=== PATIENT | male | born 1980 | race Caucasian/White ===

== ENCOUNTER 2017-05-13 14:00 | Emergency (ER) | payer MEDICAID, SELFPAY ==
[2017-05-13 14:30] VITALS: BP 128/81; PULSE 94; RESP 18; TEMP 36.6; O2SAT 98; BMI 23.6
[2017-05-13 15:34] VITALS: BP 128/81; PULSE 94; RESP 18; TEMP 36.6; O2SAT 98
--- NOTE | 2017-05-13 15:40 | HMH.EDUTC ---
[facility] [place] Disposition Clinical Impression: Left ear impacted cerumen Left otitis media Qualifiers: Otitis media type: suppurative Chronicity: acute Recurrence: not specified as recurrent Spontaneous tympanic membrane rupture: without spontaneous rupture Qualified Code(s): H66.002 - Acute suppurative otitis media without spontaneous rupture of ear drum, left ear Disposition: Home, Self-Care Condition on Discharge: Good Instructions: DI for Cerumen Impaction, DI for Otitis Media (Middle Ear Infection)-Child Additional Instructions: * cerumen removed from left completely * Cerumen partially removed on right. Debrox over the counter helps to make wax softer and easier to remove. Use x4 days then return if desire further irrigation. * Start antibiotic CECILIO and be sure to take as ordered for the FULL length of time although you should start to feel better in 24-48 hours. * Monitor Temp. FU if fever develops * Encourage fluids, water, Gatorade, PowerAde, pedialyte if infant/toddler/child * warm compress often helps when placed over ear * sleep elevated * FOLLOW UP with primary care Immediately for new or worsening symptoms, no noticeable improvement in 48-72 hours AND in 10-14 days to ensure ears are back to baseline. Prescriptions: Amoxicillin [Amoxicillin 500mg Cap] 500 mg PO TID #30 cap Time of Disposition: 15:48 Medical Decision Making - Junior Inquiry Pt receiving controlled substance: No Vital Signs: 05/13/17 14:30 05/13/17 15:34 Temperature 98 F 98 F Temperature Source Temporal Artery Scan Temporal Artery Scan Pulse Rate 94 H Pulse Rate [Brachial] 94 H Respiratory Rate 18 18 Blood Pressure 128/81 Blood Pressure [Right Arm] 128/81 Blood Pressure Mean [Right Arm] 96 Blood Pressure Position [Right Arm] Sitting 02 Sat by Pulse Oximetry 98 Oxygen Delivery Method Room Air [facility] [place] HPI - General Stated complaint: ear pain drainage Time Seen by Provider: 05/13/17 15:00 Mode of Arrival: Ambulatory Source of Information: Patient Limitations: No Limitations Description of Symptoms (Recalled from Triage Doc. by RN): LEFT EAR PAIN THAT STARTED LAST NIGHT AND SINUS DRAINAGE HEENT Symptoms (Recalled from RN notes): Yes Resp Symptoms (Recalled from RN notes): No Skin Symptoms (Recalled from RN notes): No MS Symptoms (Recalled from RN notes): No Functional Status (Recalled from RN notes): NA - History of Present Illness Provider Complaint: c/o left hear clogged and pain. Started w/ feeling clogged last night around [place] but when tried to go to sleep, pain. Hearing less. No recent illnesses. Hx of cerumen impactions. Hasn't taken or tried anything for symptoms. - Related Data Previous Rx's Medication Instructions Recorded Amoxicillin [Amoxicillin 500mg 500 mg PO TID #30 cap 05/13/17 Cap] Allergies Allergy/AdvReac Type Severity Reaction Status Date / Time INGREDIENT: NO KNOWN - NO Allergy Unknown Uncoded 02/05/17 14:43 KNOWN DRUG ALLERGY - Worker's Comp Is this a Worker's Comp case?: No [facility] History I have reviewed the patient's past medical history: Yes (denies PMhx) Medical History: Denies:: Diabetes Mellitus Type 1, Diabetes Mellitus Type 2, Hypertension Other Surgeries: Yes: Hernia Repair, Other (gaglion cyst, pilonidal cyst) - Social History Smoking Status: Current every day smoker Alcohol Intake: never - Psychiatric History Expresses thoughts of harming self/others: None Suicide Plan Description: No Plan ROS Obtained: Yes Systems reviewed as appropriate & no additional complaints - Constitutional Constitutional: Reports as per HPI, Denies body ache, Denies chills, Denies fatigue, Denies fever(s) - Eyes Eyes: Denies eye discharge, Denies itchy eyes - ENT Ears, Nose, Mouth, and Throat: Reports as per HPI, Denies ear discharge, Denies nasal congestion, Denies nasal discharge, Denies sore throat, Denies other (sneezing) - Cardiovascular Cardiovascular: Denies
--- NOTE | 2017-05-13 15:43 | ED_ITS ---
[facility] [place] Clinical Impression: Left ear impacted cerumen Left otitis media Qualifiers: Otitis media type: suppurative Chronicity: acute Recurrence: not specified as recurrent Spontaneous tympanic membrane rupture: without spontaneous rupture Qualified Code(s): H66.002 - Acute suppurative otitis media without spontaneous rupture of ear drum, left ear Disposition: Home, Self-Care Condition on Discharge: Good Instructions: DI for Cerumen Impaction, DI for Otitis Media (Middle Ear Infection)-Child Additional Instructions: * cerumen removed from left completely * Cerumen partially removed on right. Debrox over the counter helps to make wax softer and easier to remove. Use x4 days then return if desire further irrigation. * Start antibiotic CECILIO and be sure to take as ordered for the FULL length of time although you should start to feel better in 24-48 hours. * Monitor Temp. FU if fever develops * Encourage fluids, water, Gatorade, PowerAde, pedialyte if infant/toddler/ child * warm compress often helps when placed over ear * sleep elevated * FOLLOW UP with primary care Immediately for new or worsening symptoms, no noticeable improvement in 48-72 hours AND in 10-14 days to ensure ears are back to baseline. Prescriptions: Amoxicillin [Amoxicillin 500mg Cap] 500 mg PO TID #30 cap Time of Disposition: 15:48 Medical Decision Making - Junior Inquiry Pt receiving controlled substance: No Vital Signs: 05/13/17 14:30 05/13/17 15:34 Temperature 98 F 98 F Temperature Source Temporal Artery Scan Temporal Artery Scan Pulse Rate 94 H Pulse Rate [Brachial] 94 H Respiratory Rate 18 18 Blood Pressure 128/81 Blood Pressure [Right Arm] 128/81 Blood Pressure Mean [Right Arm] 96 Blood Pressure Position [Right Arm] Sitting 02 Sat by Pulse Oximetry 98 Oxygen Delivery Method Room Air [facility] [place] HPI - General Stated complaint: ear pain drainage Time Seen by Provider: 05/13/17 15:00 Mode of Arrival: Ambulatory Source of Information: Patient Limitations: No Limitations Description of Symptoms (Recalled from Triage Doc. by RN): LEFT EAR PAIN THAT STARTED LAST NIGHT AND SINUS DRAINAGE HEENT Symptoms (Recalled from RN notes): Yes Resp Symptoms (Recalled from RN notes): No Skin Symptoms (Recalled from RN notes): No MS Symptoms (Recalled from RN notes): No Functional Status (Recalled from RN notes): NA - History of Present Illness Provider Complaint: c/o left hear clogged and pain. Started w/ feeling clogged last night around [place] but when tried to go to sleep, pain. Hearing less. No recent illnesses. Hx of cerumen impactions. Hasn't taken or tried anything for symptoms. - Related Data Previous Rx's Medication Instructions Recorded Amoxicillin [Amoxicillin 500mg 500 mg PO TID #30 cap 05/13/17 Cap] Allergies Allergy/AdvReac Type Severity Reaction Status Date / Time INGREDIENT: NO KNOWN - NO Allergy Unknown Uncoded 02/05/17 14:43 KNOWN DRUG ALLERGY - Worker's Comp Is this a Worker's Comp case?: No [facility] History I have reviewed the patient's past medical history: Yes (denies PMhx) Medical History: Denies:: Diabetes Mellitus Type 1, Diabetes Mellitus Type 2, Hypertension Other Surgeries: Yes: Hernia Repair, Other (gaglion cyst, pilonidal cyst) - Social History Smoking Status: Current every day smoker Alc
== END 2017-05-13 15:50 | disposition home or self-care (01) ==
PROVIDERS: Emergency Provider Nurse Practitioner Family
DX: H66.002 Acute suppurative otitis media without spontaneous rupture of ear drum, left ear (principal); H66.22 Chronic atticoantral suppurative otitis media, left ear
CPT/HCPCS: 99201

== ENCOUNTER 2019-10-07 14:37 | Emergency (ER) | payer OTHER, SELFPAY ==
[2019-10-07 15:11] VITALS: BP 141/91; PULSE 58; RESP 14; TEMP 36.7; O2SAT 100; BMI 21.4
--- NOTE | 2019-10-07 15:22 | HMH.EDUTC ---
[facility] Clinical Impression: Right conjunctivitis Qualifiers: Conjunctivitis type: acute Acute conjunctivitis type: unspecified Qualified Code(s): H10.31 - Unspecified acute conjunctivitis, right eye Disposition: Home, Self-Care Condition on Discharge: Good Instructions: Conjunctivitis Additional Instructions: Use the eye drops as directed. Strict hand washing in the house hold, because conjunctivitis is very contagious. Follow up with your regular doctor. GO TO THE ER FOR ANY WORSENING SYMPTOMS OR CONCERNS Prescriptions: Sulfacetamide Sodium [Bleph-10] 1 drp EYE-BOTH Q3H 7 Days #1 bottle Transmission Status: Received by [facility] #[id number] Referrals: Wilbert Patiño MD [Primary Care Provider] - Forms: Work/School Release Time of Disposition: 15:29 Medical Decision Making - Medical Records Medical records reviewed: No: I reviewed the patient's medical records. - Junior Inquiry Pt receiving controlled substance: No Vital Signs: 10/07/19 15:11 10/07/19 15:33 Temperature 98.1 F 98.1 F Temperature Source Oral Pulse Rate 58 L Pulse Rate [Right Brachial] 58 L Respiratory Rate 14 14 Blood Pressure 141/91 H Blood Pressure [Right Arm] 141/91 H Blood Pressure Mean [Right Arm] 107 Blood Pressure Source [Right Arm] Automatic Cuff Blood Pressure Position [Right Arm] Sitting 02 Sat by Pulse Oximetry 100 Oxygen Delivery Method Room Air [facility] [place] - General Stated complaint: Possible pink eye in r eye Time Seen by Provider: 10/07/19 15:22 Mode of Arrival: Ambulatory Source of Information: Patient Limitations: No Limitations Description of Symptoms (Recalled from Triage Doc. by RN): PATIENT C/O POSSIBLE PINK EYE TO RIGHT EYE HEENT Symptoms (Recalled from RN notes): Yes Resp Symptoms (Recalled from RN notes): No Skin Symptoms (Recalled from RN notes): No MS Symptoms (Recalled from RN notes): No Functional Status (Recalled from RN notes): WNL - History of Present Illness Provider Complaint: He states that for the past 2 days he has had right eye irritation and redness. He denies any injury or foreign body. He thinks that he has pink eye. - Related Data Previous Rx's Medication Instructions Recorded Sulfacetamide Sodium [Bleph-10] 1 drp EYE-BOTH Q3H 7 Days #1 bottle 10/07/19 Allergies Allergy/AdvReac Type Severity Reaction Status Date / Time No Known Allergies Allergy Verified 02/19/18 19:12 - Worker's Comp Is this a Worker's Comp case?: No [facility] History - Hepatitis A Screen Drug use history?: No High risk sexual behaviors?: No History of sexually transmitted infection?: No Currently employed?: No Childcare worker?: No Do you have indoor plumbing?: Yes Do you have electricity?: Yes Attestation statement:: This patient has been screened for Hepatitis A risk factors. I have reviewed the patient's past medical history: Yes Medical History: Denies:: Cancer, Diabetes Mellitus Type 1, Diabetes Mellitus Type 2, Hypertension, MRSA Other Surgeries: Yes: No Previous Surgery, Hernia Repair, Other Amputation: No Fractures: No - Social History Smoking Status: Current every day smoker Tobacco Type: cigarettes # Packs/Day (cigarettes): 1 Alcohol Intake: never Occupational Status: other Housing: house Household Members: family Family Hx:: No significant family history ROS Obtained: Yes All systems reviewed & no additional complaints - Constitutional Constitutional: Denies chills, Denies fever(s) - Eyes Eyes: Reports as per HPI - ENT Ears, Nose, Mouth, and Throat: Denies dizziness, Denies otalgia, Denies sore throat - Cardiovascular Cardiovascular: Denies chest pain - Respiratory Respiratory: No chest congestion, No cough Physical Exam - General General appearance: alert, in no apparent distress - Head Head exam: atraumatic, normocephalic, normal inspection - Eye Eye exam: Present: PERRL, EOMI, conjunctival injection, dischar
[2019-10-07 15:33] VITALS: BP 141/91; PULSE 58; RESP 14; TEMP 36.7; O2SAT 100
== END 2019-10-07 15:37 | disposition home or self-care (01) ==
PROVIDERS: Emergency Provider Nurse Practitioner Family; PCP Internal Medicine Adolescent Medicine
DX: H10.31 Unspecified acute conjunctivitis, right eye (principal); F17.210 Nicotine dependence, cigarettes, uncomplicated
CPT/HCPCS: 99201

== ENCOUNTER 2019-12-23 12:57 | Emergency (ER) | payer OTHER, SELFPAY ==
[2019-12-23 13:08] VITALS: BP 116/89; PULSE 83; RESP 18; TEMP 36.7; O2SAT 96; BMI 21.4
--- NOTE | 2019-12-23 13:15 | HMH.EDUTC ---
[facility] [place] Clinical Impression: Right conjunctivitis Qualifiers: Conjunctivitis type: unspecified Qualified Code(s): H10.9 - Unspecified conjunctivitis Disposition: Home, Self-Care Condition on Discharge: Good Instructions: How to Instill Eye Drops, Conjunctivitis, DI for Conjunctivitis Additional Instructions: Clean hands before and after applying drops Follow up with Dr Ríos or eye doctor if no improvement or any worsening of symptoms Return if needed Straight to ER if any life threatening symptoms Prescriptions: Erythromycin Base [Erythromycin 3.5gm opth oinment] 1 applicatio OP Q6H 7 Days #1 tube Transmission Status: Received by [facility] #[id number] Referrals: Wilbert Patiño MD [Primary Care Provider] - As needed Dr Ríos [Other] - As needed Time of Disposition: 13:34 Medical Decision Making - Junior Inquiry Pt receiving controlled substance: No Junior was queried for this patient: No Vital Signs: 12/23/19 13:08 12/23/19 13:38 Temperature 98.0 F 98.0 F Temperature Source Oral Oral Pulse Rate 83 Pulse Rate [Radial] 83 Respiratory Rate 18 18 Blood Pressure 116/80 Blood Pressure [Right Arm] 116/89 Blood Pressure Mean [Right Arm] 98 Blood Pressure Source Automatic Cuff Blood Pressure Source [Right Arm] Automatic Cuff Blood Pressure Position Sitting Blood Pressure Position [Right Arm] Sitting 02 Sat by Pulse Oximetry 96 Oxygen Delivery Method Room Air Room Air Medical Decision Narrative: Discussed eye exam and patient declined states that he has had pink eye before and felt like this States that he use old pair of contacts and irritation and redness started after that States that if symptoms continue he will follow up with Eye Doctor Denies injury of FB [facility] [place]PI - General Stated complaint: eye swollen and draining Time Seen by Provider: 12/23/19 13:16 Mode of Arrival: Ambulatory Source of Information: Patient Limitations: No Limitations Description of Symptoms (Recalled from Triage Doc. by RN): pink eye HEENT Symptoms (Recalled from RN notes): Yes Resp Symptoms (Recalled from RN notes): No Skin Symptoms (Recalled from RN notes): No MS Symptoms (Recalled from RN notes): No Functional Status (Recalled from RN notes): wnl - History of Present Illness Provider Complaint: Patient state that he thinks he has pink eye again States that he wore a pair of old contacts a couple days ago and noticed that he was starting to have drainage and itching/irritation in his right eye with redness and drainage States that it feels like it did before when he had pink eye States that this morning it was red and matted together so this evening it was still red and having drainage so he came in to get it checked denies injury of FB - Related Data Previous Rx's Medication Instructions Recorded Sulfacetamide Sodium [Bleph-10] 1 drp EYE-BOTH Q3H 7 Days #1 bottle 10/07/19 Erythromycin Base [Erythromycin 1 applicatio OP Q6H 7 Days #1 tube 12/23/19 3.5gm opth oinment] Allergies Allergy/AdvReac Type Severity Reaction Status Date / Time No Known Allergies Allergy Verified 02/19/18 19:12 - Worker's Comp Is this a Worker's Comp case?: No [facility] History - Hepatitis A Screen Drug use history?: No High risk sexual behaviors?: No History of sexually transmitted infection?: No Currently employed?: No Childcare worker?: No Do you have indoor plumbing?: Yes Do you have electricity?: Yes Attestation statement:: This patient has been screened for Hepatitis A risk factors. I have reviewed the patient's past medical history: Yes Medical History: Denies:: Cancer, Diabetes Mellitus Type 1, Diabetes Mellitus Type 2, Hypertension, MRSA Other Surgeries: Yes: No Previous Surgery, Hernia Repair, Other Amputation: No Fractures: No - Social History Smoking Status: Current every day smoker Tobacco Type: cigarettes # Packs/Day (cigarettes): 1 Alcohol Intake: never Occupational Status: empl
[2019-12-23 13:38] VITALS: BP 116/80; PULSE 83; RESP 18; TEMP 36.7; O2SAT 96
== END 2019-12-23 13:40 | disposition home or self-care (01) ==
PROVIDERS: Emergency Provider Nurse Practitioner; PCP Internal Medicine Adolescent Medicine
DX: H10.33 Unspecified acute conjunctivitis, bilateral (principal)
CPT/HCPCS: 99201

== ENCOUNTER 2020-05-25 15:00 | Emergency (ER) | payer OTHER, SELFPAY ==
[2020-05-25 15:00] VITALS: BP 134/91; PULSE 76; RESP 18; TEMP 37.1; O2SAT 98; BMI 24.9
--- NOTE | 2020-05-25 15:16 | HMH.EDUTC ---
[facility] [place]: Dental [place] Disposition: Home, Self-Care Condition on Discharge: Good Instructions: Tooth Abscess, DI for Dental Pain Additional Instructions: Take medication as prescribed *Use Dental balls as advised and instructed in [facility] to help with dental pain Follow up with Dentist as scheduled Follow up with your Family Doctor if needed Straight to ER if any life threatening symptoms Prescriptions: Ibuprofen [Ibuprofen 600mg Tablet] 600 mg PO Q6HP PRN #20 tab PRN Reason: Moderate Pain Transmission Status: Pending to [facility] # Amoxicillin/Potassium Clav [Augmentin 875-125 Tablet] 1 tab PO Q12H 7 Days #14 tab Transmission Status: Pending to [facility] # Referrals: Wilbert Patiño MD [Primary Care Provider] - As needed Time of Disposition: 15:22 Medical Decision Making - Junior Inquiry Pt receiving controlled substance: No Junior was queried for this patient: No Vital Signs: 05/25/20 15:00 Temperature 98.8 F Temperature Source Oral Pulse Rate [Right Brachial] 76 Respiratory Rate 18 Blood Pressure [Right Arm] 134/91 H Blood Pressure Mean [Right Arm] 105 Blood Pressure Source [Right Arm] Automatic Cuff Blood Pressure Position [Right Arm] Sitting 02 Sat by Pulse Oximetry 98 Oxygen Delivery Method Room Air [facility] [place] - General Stated complaint: dental pain Time Seen by Provider: 05/25/20 15:16 Mode of Arrival: Ambulatory Source of Information: Patient Limitations: No Limitations Description of Symptoms (Recalled from Triage Doc. by RN): PATIENT C/O MOUTH/DENTAL PAIN HEENT Symptoms (Recalled from RN notes): Yes Resp Symptoms (Recalled from RN notes): No Skin Symptoms (Recalled from RN notes): No MS Symptoms (Recalled from RN notes): No Functional Status (Recalled from RN notes): WNL - History of Present Illness Provider Complaint: Patient state that he has been having pain and swelling on and off on his left jaw area State that he has multiple broken and cracked teeth and has been trying to get into a dentist States that for the last couple of days he has started having pain again and noticed today his gum looked red and swollen and worried that he may have a dental abscess and has appointment with dentist next week so he came in - Related Data Previous Rx's Medication Instructions Recorded Amoxicillin/Potassium Clav 1 tab PO Q12H 7 Days #14 tab 05/25/20 [Augmentin 875-125 Tablet] Ibuprofen [Ibuprofen 600mg 600 mg PO Q6HP PRN #20 tab 05/25/20 Tablet] Allergies Allergy/AdvReac Type Severity Reaction Status Date / Time No Known Allergies Allergy Verified 02/19/18 19:12 - Worker's Comp Is this a Worker's Comp case?: No [facility] History - Hepatitis A Screen Drug use history?: No High risk sexual behaviors?: No History of sexually transmitted infection?: No Currently employed?: No Childcare worker?: No Do you have indoor plumbing?: Yes Do you have electricity?: Yes Attestation statement:: This patient has been screened for Hepatitis A risk factors. I have reviewed the patient's past medical history: Yes Medical History: Denies:: Cancer, Diabetes Mellitus Type 1, Diabetes Mellitus Type 2, Hypertension, MRSA Other Surgeries: Yes: No Previous Surgery, Hernia Repair, Other Amputation: No Fractures: No - Social History Smoking Status: Current every day smoker Tobacco Type: cigarettes # Packs/Day (cigarettes): 1 Alcohol Intake: never Occupational Status: other Housing: house Household Members: family Family Hx:: No significant family history ROS Obtained: Yes All systems reviewed & no additional complaints, Yes Systems reviewed as appropriate & no additional complaints - Constitutional Constitutional: Reports system reviewed and no additional complaints, except as docu - ENT Ears, Nose, Mouth, and Throat: Reports dental pain Physical Exam - General General appearance: alert, in no apparen
[2020-05-25 15:30] VITALS: BP 134/91; PULSE 76; RESP 18; TEMP 37.1; O2SAT 98
== END 2020-05-25 15:34 | disposition home or self-care (01) ==
PROVIDERS: Emergency Provider Nurse Practitioner; PCP Internal Medicine Adolescent Medicine
DX: K04.7 Periapical abscess without sinus (principal); K02.9 Dental caries, unspecified; F17.210 Nicotine dependence, cigarettes, uncomplicated
CPT/HCPCS: 99202; G0463

== ENCOUNTER 2020-06-20 09:03 | Emergency (ER) | payer OTHER, SELFPAY ==
[2020-06-20 09:09] VITALS: BP 153/100; PULSE 82; RESP 16; TEMP 36.8; O2SAT 99; BMI 25.9
--- NOTE | 2020-06-20 09:35 | HMH.EDUTC ---
[facility] [place] Clinical Impression: Left otitis media Qualifiers: Otitis media type: suppurative Chronicity: acute Recurrence: non-recurrent Spontaneous tympanic membrane rupture: without spontaneous rupture Qualified Code(s): H66.002 - Acute suppurative otitis media without spontaneous rupture of ear drum, left ear Disposition: Home, Self-Care Condition on Discharge: Good Instructions: Middle Ear Infection Additional Instructions: Drink plenty of fluids. Take tylenol or ibuprofen for pain or fever. Take the medications as directed. Follow up with your regular doctor. GO TO THE ER FOR ANY WORSENING SYMPTOMS Prescriptions: Amoxicillin [Amoxicillin 500mg Tab] 500 mg PO TID 10 Days #30 tab Transmission Status: Received by [facility] # predniSONE [Deltasone 10mg tablet] 10 mg PO BID 3 Days #6 tab Transmission Status: Received by [facility] # Referrals: Wilbert Patiño MD [Primary Care Provider] - Time of Disposition: 09:38 Medical Decision Making - Medical Records Medical records reviewed: No: I reviewed the patient's medical records. - Junior Inquiry Pt receiving controlled substance: No Vital Signs: 06/20/20 09:09 06/20/20 09:45 Temperature 98.3 F 98 F Temperature Source Oral Pulse Rate 81 Pulse Rate [Right] 82 Respiratory Rate 16 14 Blood Pressure 142/96 H Blood Pressure [Right Arm] 153/100 H Blood Pressure Mean [Right Arm] 117 Blood Pressure Source [Right Arm] Automatic Cuff Blood Pressure Position [Right Arm] Sitting 02 Sat by Pulse Oximetry 99 Oxygen Delivery Method Room Air [facility] [place] HPI - General Stated complaint: ear pain Time Seen by Provider: 06/20/20 09:35 Mode of Arrival: Ambulatory Source of Information: Patient Limitations: No Limitations Description of Symptoms (Recalled from Triage Doc. by RN): L ear pain/ pressure x1 week HEENT Symptoms (Recalled from RN notes): Yes (L ear pain) Resp Symptoms (Recalled from RN notes): No Skin Symptoms (Recalled from RN notes): No MS Symptoms (Recalled from RN notes): No Functional Status (Recalled from RN notes): na - History of Present Illness Provider Complaint: He states that he has had left ear pain for the past 3 days. He has a history of getting ear infections frequently. - Related Data Previous Rx's Medication Instructions Recorded Amoxicillin/Potassium Clav 1 tab PO Q12H 7 Days #14 tab 05/25/20 [Augmentin 875-125 Tablet] Ibuprofen [Ibuprofen 600mg 600 mg PO Q6HP PRN #20 tab 05/25/20 Tablet] Amoxicillin [Amoxicillin 500mg Tab] 500 mg PO TID 10 Days #30 tab 06/20/20 predniSONE [Deltasone 10mg tablet] 10 mg PO BID 3 Days #6 tab 06/20/20 Allergies Allergy/AdvReac Type Severity Reaction Status Date / Time No Known Allergies Allergy Verified 06/20/20 09:18 - Worker's Comp Is this a Worker's Comp case?: No [facility] History - Hepatitis A Screen Drug use history?: No High risk sexual behaviors?: No History of sexually transmitted infection?: No Currently employed?: No Childcare worker?: No Do you have indoor plumbing?: Yes Do you have electricity?: Yes Attestation statement:: This patient has been screened for Hepatitis A risk factors. I have reviewed the patient's past medical history: Yes Medical History: Denies:: Cancer, Diabetes Mellitus Type 1, Diabetes Mellitus Type 2, Hypertension, MRSA Other Surgeries: Yes: No Previous Surgery, Hernia Repair, Other Amputation: No Fractures: No - Social History Smoking Status: Current every day smoker Tobacco Type: cigarettes # Packs/Day (cigarettes): 1 Alcohol Intake: never Occupational Status: other Housing: house Household Members: family Family Hx:: No significant family history ROS Obtained: Yes All systems reviewed & no additional complaints - Constitutional Constitutional: Denies chills, Denies fever(s) - Eyes Eyes: Denies blurry vision, Denies change in vision, Denies eye discharge, Denies
[2020-06-20 09:45] VITALS: BP 142/96; PULSE 81; RESP 14; TEMP 36.6
== END 2020-06-20 09:50 | disposition home or self-care (01) ==
PROVIDERS: Emergency Provider Nurse Practitioner Family; PCP Internal Medicine Adolescent Medicine
DX: H66.002 Acute suppurative otitis media without spontaneous rupture of ear drum, left ear (principal); F17.210 Nicotine dependence, cigarettes, uncomplicated
CPT/HCPCS: 99202; G0463

== ENCOUNTER 2020-09-05 19:11 | Emergency (ER) | payer OTHER, SELFPAY ==
[2020-09-05 19:15] VITALS: BP 111/78; PULSE 77; RESP 20; TEMP 36.8; O2SAT 98; BMI 22.1
--- NOTE | 2020-09-05 19:41 | HMH.EDUTC ---
[facility] [place] Impression: Left otitis media Qualifiers: Otitis media type: unspecified Qualified Code(s): H66.92 - Otitis media, unspecified, left ear Disposition: Home, Self-Care Condition on Discharge: Good Instructions: Middle Ear Infection, Amoxicillin Additional Instructions: Take medication as prescribed Over the counter Debrox may help with wax removal in ear Over the counter Motrin and/or Tylenol as directed on package for fever and pain Follow up with your Family Doctor if no improvement or any worsening of symptoms Prescriptions: Amoxicillin [Amoxicillin 875MG Tab] 875 mg PO Q12H #20 tab Transmission Status: Pending to [facility] #[id number] Referrals: Wilbert Patiño MD [Primary Care Provider] - As needed Time of Disposition: 19:43 Medical Decision Making - Junior Inquiry Pt receiving controlled substance: No Junior was queried for this patient: No Vital Signs: 09/05/20 19:15 09/05/20 19:42 Temperature 98.2 F 98.2 F Temperature Source Oral Pulse Rate 77 Pulse Rate [Left Brachial] 77 Respiratory Rate 20 20 Blood Pressure 111/78 Blood Pressure [Left Arm] 111/78 Blood Pressure Mean [Left Arm] 89 Blood Pressure Source [Left Arm] Automatic Cuff Blood Pressure Position [Left Arm] Sitting 02 Sat by Pulse Oximetry 98 Oxygen Delivery Method [place] [facility] [place] - General Stated complaint: left earache Time Seen by Provider: 09/05/20 19:41 Mode of Arrival: Ambulatory Source of Information: Patient Limitations: No Limitations Description of Symptoms (Recalled from Triage Doc. by RN): PATIENT C/O LEFT EAR PAIN X 2 DAYS HEENT Symptoms (Recalled from RN notes): No Resp Symptoms (Recalled from RN notes): No Skin Symptoms (Recalled from RN notes): No MS Symptoms (Recalled from RN notes): Yes Functional Status (Recalled from RN notes): WNL - History of Present Illness Provider Complaint: Patient states that he gets ear infections often States that he was having pressure like feeling in his left ear about a week ago and has been having pain in left ear for the last couple of days States that feels like he has ear infection again - Related Data Previous Rx's Medication Instructions Recorded Amoxicillin/Potassium Clav 1 tab PO Q12H 7 Days #14 tab 05/25/20 [Augmentin 875-125 Tablet] Ibuprofen [Ibuprofen 600mg 600 mg PO Q6HP PRN #20 tab 05/25/20 Tablet] Amoxicillin [Amoxicillin 500mg Tab] 500 mg PO TID 10 Days #30 tab 06/20/20 predniSONE [Deltasone 10mg tablet] 10 mg PO BID 3 Days #6 tab 06/20/20 Amoxicillin [Amoxicillin 875MG 875 mg PO Q12H #20 tab 09/05/20 Tab] Allergies Allergy/AdvReac Type Severity Reaction Status Date / Time No Known Allergies Allergy Verified 06/20/20 09:18 - Worker's Comp Is this a Worker's Comp case?: No [facility] History - Hepatitis A Screen Drug use history?: No High risk sexual behaviors?: No History of sexually transmitted infection?: No Currently employed?: No Childcare worker?: No Do you have indoor plumbing?: Yes Do you have electricity?: Yes Attestation statement:: This patient has been screened for Hepatitis A risk factors. I have reviewed the patient's past medical history: Yes Medical History: Denies:: Cancer, Diabetes Mellitus Type 1, Diabetes Mellitus Type 2, Hypertension, MRSA Other Surgeries: Yes: No Previous Surgery, Hernia Repair, Other Amputation: No Fractures: No - Social History Smoking Status: Current every day smoker Tobacco Type: cigarettes # Packs/Day (cigarettes): 1 Alcohol Intake: never Occupational Status: other Housing: house Household Members: family Family Hx:: No significant family history ROS Obtained: Yes All systems reviewed & no additional complaints, Yes Systems reviewed as appropriate & no additional complaints - Constitutional Constitutional: Reports system reviewed and no additional complaints, except as docu - ENT Ears, Nose, Mouth, and Throat: Reports system r
[2020-09-05 19:42] VITALS: BP 111/78; PULSE 77; RESP 20; TEMP 36.8; O2SAT 98
== END 2020-09-05 19:46 | disposition home or self-care (01) ==
PROVIDERS: Emergency Provider Nurse Practitioner; PCP Internal Medicine Adolescent Medicine
DX: H66.92 Otitis media, unspecified, left ear (principal); F17.210 Nicotine dependence, cigarettes, uncomplicated
CPT/HCPCS: 99202; G0463

== ENCOUNTER 2020-09-09 14:03 | Emergency (ER) | payer OTHER, SELFPAY ==
[2020-09-09 15:05] VITALS: BP 127/91; PULSE 82; RESP 16; TEMP 37; O2SAT 98; BMI 21.8
--- NOTE | 2020-09-09 15:32 | HMH.EDUTC ---
[facility] [place] Clinical Impression: Otitis externa Qualifiers: Otitis externa type: unspecified type Chronicity: unspecified Laterality: left Qualified Code(s): H60.92 - Unspecified otitis externa, left ear Disposition: Home, Self-Care Condition on Discharge: Good Instructions: Otitis Externa, DI for Otitis Externa Additional Instructions: Continue taking oral antibiotics Start Antibiotic drops as prescribed Follow up with your Family Doctor if needed Follow up with Dr Campos or Dr Murdock in ENT office for further evaluation and treatment if you continue to have ear problems Return if needed Prescriptions: Neomyc/Colist/Hydrocort/Thonzn [Cortisporin-Tc Ear Suspension] 4 drops EAR-LEFT TID 7 Days #1 bottle Transmission Status: Pending to [email or web address] #[id number] Referrals: Wilbert Patiño MD [Primary Care Provider] - As needed Cabrera Campos MD [Staff Physician] - Amber Murdock MD [Consulting Physician] - Time of Disposition: 15:40 Medical Decision Making - Junior Inquiry Pt receiving controlled substance: No Junior was queried for this patient: No Vital Signs: 09/09/20 15:05 Temperature 98.6 F Temperature Source Oral Pulse Rate [Right] 82 Respiratory Rate 16 Blood Pressure [Right Arm] 127/91 H Blood Pressure Mean [Right Arm] 103 Blood Pressure Source [Right Arm] Automatic Cuff Blood Pressure Position [Right Arm] Sitting 02 Sat by Pulse Oximetry 98 Oxygen Delivery Method Room Air [facility] [place] HPI - General Stated complaint: lt ear pain Time Seen by Provider: 09/09/20 15:33 Mode of Arrival: Ambulatory Source of Information: Patient Limitations: No Limitations Description of Symptoms (Recalled from Triage Doc. by RN): pt c/o left ear pain HEENT Symptoms (Recalled from RN notes): Yes (ear pain) Resp Symptoms (Recalled from RN notes): No Skin Symptoms (Recalled from RN notes): No MS Symptoms (Recalled from RN notes): No Functional Status (Recalled from RN notes): na - History of Present Illness Provider Complaint: Patient states that he has been having ear infections on and off State that he is currently on antibiotics but feels like he is having swelling in his left ear canal and feels like he has fluid in there States that he did get some water in his ear from the shower to try to clean out the wax States that today he still felt like he had swelling so he came in - Related Data Previous Rx's Medication Instructions Recorded Amoxicillin/Potassium Clav 1 tab PO Q12H 7 Days #14 tab 05/25/20 [Augmentin 875-125 Tablet] Ibuprofen [Ibuprofen 600mg 600 mg PO Q6HP PRN #20 tab 05/25/20 Tablet] Amoxicillin [Amoxicillin 500mg Tab] 500 mg PO TID 10 Days #30 tab 06/20/20 predniSONE [Deltasone 10mg tablet] 10 mg PO BID 3 Days #6 tab 06/20/20 Amoxicillin [Amoxicillin 875MG 875 mg PO Q12H #20 tab 09/05/20 Tab] Neomyc/Colist/Hydrocort/Thonzn 4 drops EAR-LEFT TID 7 Days #1 09/09/20 [Cortisporin-Tc Ear Suspension] bottle Allergies Allergy/AdvReac Type Severity Reaction Status Date / Time No Known Allergies Allergy Verified 06/20/20 09:18 - Worker's Comp Is this a Worker's Comp case?: No [facility] History - Hepatitis A Screen Drug use history?: No High risk sexual behaviors?: No History of sexually transmitted infection?: No Currently employed?: No Childcare worker?: No Do you have indoor plumbing?: Yes Do you have electricity?: Yes Attestation statement:: This patient has been screened for Hepatitis A risk factors. I have reviewed the patient's past medical history: Yes Medical History: Denies:: Cancer, Diabetes Mellitus Type 1, Diabetes Mellitus Type 2, Hypertension, MRSA Other Surgeries: Yes: No Previous Surgery, Hernia Repair, Other Amputation: No Fractures: No - Social History Smoking Status: Current every day smoker Tobacco Type: cigarettes # Packs/Day (cigarettes): 1 Alcohol Intake: never Occupational Status: other Housing: house Household Members: family Family
[2020-09-09 15:45] VITALS: BP 128/89; PULSE 80; RESP 16; TEMP 36.9; O2SAT 98
== END 2020-09-09 15:46 | disposition home or self-care (01) ==
PROVIDERS: Emergency Provider Nurse Practitioner; PCP Internal Medicine Adolescent Medicine
DX: H60.92 Unspecified otitis externa, left ear (principal); F17.210 Nicotine dependence, cigarettes, uncomplicated
CPT/HCPCS: 99202; G0463

== ENCOUNTER 2022-08-17 16:57 | Emergency (ER) | payer OTHER, SELFPAY ==
[2022-08-17 16:57] VITALS: BP 131/94; PULSE 95; RESP 18; TEMP 36.8; O2SAT 99; BMI 22.1
--- NOTE | 2022-08-17 17:10 | EXP.UTC ---
Discharge Plan Disposition Patient Disposition: Home, Self-Care Condition: Good Prescriptions Prescriptions: New amoxicillin-pot clavulanate 875-125 mg Tablet 1 tab PO Q12H Qty: 20 0RF ciprofloxacin-dexamethasone [Ciprodex] 0.3-0.1 % drops,suspension 4 drp otic (ear) BID Qty: 7.5 0RF No Action ibuprofen 600 MG tablet 600 mg PO Q6HP PRN (Reason: Moderate Pain) Qty: 20 0RF amoxicillin-pot clavulanate 1 EACH tablet 1 tab PO Q12H 7 Days Qty: 14 0RF amoxicillin 500 MG tablet 500 mg PO TID 10 Days Qty: 30 0RF prednisone 10 MG tablet 10 mg PO BID 3 Days Qty: 6 0RF sackljzz-jnmkoz-SW-thonzonium 10 ML drops,suspension 4 drops EAR-LEFT TID 7 Days Qty: 1 0RF amoxicillin 875 MG tablet 875 mg PO Q12H Qty: 20 0RF Referrals Follow up/Referrals: Wilbert Patiño MD [Primary Care Provider] - See instructions Jerome Sanford III, MD [Referring] - See instructions Clinical Impressions Clinical Impression: Left otitis media Discharge ED Provider: Delmis Garcia [facility] [place] HPI General Stated complaint: left ear pain Mode of Arrival: Ambulatory Source of Information: Patient Limitations: No Limitations Time Seen by Provider: 08/17/22 17:10 Description of Symptoms (Recalled from Triage Doc. by RN): Patient reports left ear pain. HEENT Symptoms (Recalled from RN notes): Yes Resp Symptoms (Recalled from RN notes): No Skin Symptoms (Recalled from RN notes): No MS Symptoms (Recalled from RN notes): No Functional Status (Recalled from RN notes): wnl History of Present Illness Provider Complaint: Left ear drainage, fullness X 2-3 days. No pain but is draining bloody sticky fluid. No fever. Related Data Previous Rx's Medication Instructions Recorded amoxicillin 875 mg-potassium 1 tab PO Q12H 7 days #14 tabs 05/25/20 clavulanate 125 mg tablet ibuprofen 600 mg tablet 600 mg PO Q6HP PRN Moderate Pain 05/25/20 #20 tabs amoxicillin 500 mg tablet 500 mg PO TID 10 days #30 tabs 06/20/20 prednisone 10 mg tablet 10 mg PO BID 3 days #6 tabs 06/20/20 amoxicillin 875 mg tablet 875 mg PO Q12H #20 tabs 09/05/20 xdzmwxlb-ioaqan-DI-thonzonm 3.3 4 drops EAR-LEFT TID 7 days ##1 09/09/20 mg-3 mg-10 mg-0.5 mg/mL ear drops,susp amoxicillin 875 mg-potassium 1 tab PO Q12H #20 tabs 08/17/22 clavulanate 125 mg tablet ciprofloxacin 0.3 %-dexamethasone 4 drp otic (ear) BID #7.5 mL 08/17/22 0.1 % ear drops,suspension (Ciprodex) Allergies Allergy/AdvReac Type Severity Reaction Status Date / Time No Known Allergies Allergy Verified 06/20/20 09:18 Worker's Comp Is this a Worker's Comp case?: No [facility] Disclaimer: The information contained in this section may have been updated after the patient was seen, as this information can be updated by other users. Social History Smoking Status: Current every day smoker tobacco type: cigarettes packs per day: 1 second hand exposure: Yes alcohol intake: never current occupational status: other Travel in the last 8 weeks: None household members: family housing: house ROS Obtained: Yes All systems reviewed & no additional complaints except as documented ENT Ears, Nose, Mouth, and Throat: Reports ear discharge Physical Exam General General appearance: alert and in no apparent distress Head Head exam: atraumatic, normocephalic and normal inspection Eye Eye exam: Present normal appearance, PERRL and EOMI ENT ENT exam: Present normal exam, normal oropharynx, mucous membranes moist and normal external ear exam Expanded ENT Exam TM/Canal exam: Left TM: cerumen impaction Neck Neck exam: Present normal inspection, full ROM and trachea midline; Absent meningismus or lymphadenopathy Chest Chest inspection: Present normal inspection and symmetric chest wall rise; Absent tenderness Respiratory Respiratory exam: Present normal lung sounds bilaterally; Absent respiratory distress Cardiovascular Cardiovascular exam: Present regular r
[2022-08-17 17:25] VITALS: BP 131/94; PULSE 95; RESP 18; TEMP 36.8; O2SAT 99
== END 2022-08-17 17:27 | disposition home or self-care (01) ==
PROVIDERS: Emergency Provider Physician Assistant; PCP Internal Medicine Adolescent Medicine
DX: H66.92 Otitis media, unspecified, left ear (principal); F17.210 Nicotine dependence, cigarettes, uncomplicated
CPT/HCPCS: 99212; 99214; G0463

== ENCOUNTER 2022-09-07 18:12 | Emergency (ER) | payer SELFPAY ==
[2022-09-07 18:20] VITALS: BP 131/85; PULSE 82; RESP 18; TEMP 36.8; O2SAT 98; BMI 24.9
--- NOTE | 2022-09-07 18:32 | EXP.UTC ---
Discharge Plan Disposition Patient Disposition: Home, Self-Care Condition: Good Referrals Follow up/Referrals: Wilbert Patiño MD [Primary Care Provider] - See instructions Activity Restrictions/Add. Instructions Additional Instructions/Restrictions: Over the counter Debrox as directed on package may help to clear ears of debris and wax Follow up with your Family Doctor if no improvement or any worsening of symptoms Return if needed Follow up with ENT if no improvement or any worsening of symptoms Straight to ER if any life threatening symptoms Clinical Impressions Clinical Impression: Impacted ear wax Qualifiers: Laterality: left Qualified Code(s): H61.22 - Impacted cerumen, left ear Instructions Patient Instructions: DI for Cerumen Impaction Discharge ED Provider: Hailee Magdaleno [facility] General Stated complaint: trouble hearing in LT ear Mode of Arrival: Ambulatory Source of Information: Patient Limitations: No Limitations Time Seen by Provider: 09/07/22 18:20 Description of Symptoms (Recalled from Triage Doc. by RN): PATIENT C/O LEFT EAR CLOGGED X 1 WEEK HEENT Symptoms (Recalled from RN notes): No Resp Symptoms (Recalled from RN notes): No Skin Symptoms (Recalled from RN notes): No MS Symptoms (Recalled from RN notes): No Functional Status (Recalled from RN notes): WNL History of Present Illness Provider Complaint: Patient states that he was recently on antibiotics and has finished them for left ear infection States that his ear was clogged with wax and he waited to finish antibitoics to come in and get it flushed out States that he is not having any pain or anything but feels like it is all stopped up and not able to hear out of it Related Data Allergies Allergy/AdvReac Type Severity Reaction Status Date / Time No Known Allergies Allergy Verified 06/20/20 09:18 Worker's Comp Is this a Worker's Comp case?: No [facility] Disclaimer: The information contained in this section may have been updated after the patient was seen, as this information can be updated by other users. Social History Smoking Status: Current every day smoker tobacco type: cigarettes packs per day: 1 second hand exposure: Yes alcohol intake: never current occupational status: other Travel in the last 8 weeks: None household members: family housing: house ROS Obtained: Yes All systems reviewed & no additional complaints except as documented and Yes Systems reviewed as appropriate & no additional complaints except as documented Constitutional Constitutional: Reports system reviewed and no additional complaints, except as documented and Reports as per HPI ENT Ears, Nose, Mouth, and Throat: Reports system reviewed and no additional complaints, except as documented, Reports as per HPI and Reports other (left ear feels clogged decreased hearing) Cardiovascular Cardiovascular: Reports system reviewed and no additional complaints, except as documented and Reports as per HPI Respiratory Respiratory: Reports system reviewed and no additional complaints, except as documented and Reports as per HPI Gastrointestinal Gastrointestingal: Reports system reviewed and no additional complaints, except as documented and as per HPI Musculoskeletal Musculoskeletal: Reports system reviewed and no additional complaints, except as documented and Reports as per HPI Integumentary/Breasts Skin/Breast: Reports system reviewed and no additional complaints, except as documented and Reports as per HPI Physical Exam General General appearance: alert and in no apparent distress Expanded ENT Exam TM/Canal exam: Left TM: cerumen impaction Respiratory Respiratory exam: Present normal lung sounds bilaterally; Absent respiratory distress or wheezes Cardiovascular Cardiovascular exam: Present regular rate, normal rhythm and normal heart sounds Neurological Exam Neurological exam: Present alert, oriented X3 and normal gait Medical Decision Making Mei
[2022-09-07 18:34] VITALS: BP 131/85; PULSE 82; RESP 18; TEMP 36.8; O2SAT 98
== END 2022-09-07 18:42 | disposition home or self-care (01) ==
PROVIDERS: Emergency Provider Nurse Practitioner; PCP Internal Medicine Adolescent Medicine
DX: H61.22 Impacted cerumen, left ear (principal); F17.210 Nicotine dependence, cigarettes, uncomplicated
CPT/HCPCS: 69209; 99212; 99213; G0463